=== PATIENT | female | born 1970 | race Caucasian/White ===

== ENCOUNTER 2020-10-12 20:00 | Emergency (ER) | payer BC ==
[2020-10-12] MEDS ORDERED: Sodium Chloride 0.9% 10 ML Syringe FLUSH PRN (20:25)
[2020-10-12] MEDS ORDERED: Sodium Chloride 0.9% 2.5 ML Syringe FLUSH PRN (20:25)
--- NOTE | 2020-10-12 20:32 | EDM.PDOC ---
ED HPI GENERAL MEDICAL PROBLEM - General Chief Complaint: General Stated Complaint: SHORT OF BREATHE/LEFT ARM PAIN Time Seen by Provider: 10/12/20 20:08 - History of Present Illness INITIAL COMMENTS - FREE TEXT/NARRATIVE: 50-year-old female with a history of hypertension and hyperlipidemia no prior cardiac history no pulmonary history who is presenting with left lateral chest and left shoulder discomfort. She was in her normal state of health until she woke up this morning with very minimal pain. It increases with deep breaths and has gradually worsened throughout the day she tried to take some Tylenol at work but it continues to worsen and so she presents for assessment. She denies feeling dyspneic the pain does not worsen with exertion there is no nausea or vomiting no change with p.o. intake and no abdominal pain. Pain currently moderate. shoulder/abd Pain Score (Numeric/FACES): 8 - Related Data Allergies Allergy/AdvReac Type Severity Reaction Status Date / Time No Known Allergies Allergy Verified 10/12/20 20:16 Home Meds: Home Meds Amoxicillin/Clavulanate K [Augmentin 875-125 MG] 1 tab PO BID 10 Days #19 tablet 10/12/20 [Rx] Pravastatin [Pravachol] 10/12/20 [History] lisinopriL [Lisinopril] 10/12/20 [History] Past Medical History Cardiovascular History: Reports: High Cholesterol, Hypertension - Infectious Disease History Infectious Disease History: Reports: Chicken Pox Social & Family History - Tobacco Use Tobacco Use Status *Q: Current Every Day Tobacco User Years of Tobacco use: 10 Packs/Tins Daily: 0.5 - Recreational Drug Use Recreational Drug Use: No ED ROS GENERAL - Review of Systems Review Of Systems: See Below Free Text/Narrative/Comment: General: No fever. Skin: No rash. Eyes: No vision problems. ENT: No sore throat. Neck: No neck stiffness. Respiratory: No shortness of breath. Cardiac: Per HPI Gastrointestinal: No nausea, vomiting or abdominal pain. Urinary: No dysuria. Musculoskeletal: Per HPI Neurologic: No headache. ED EXAM, GENERAL - Physical Exam Exam: See Below Free Text/Narrative:: General Appearance: No acute distress, appears comfortable Skin: No rash HEENT: Normocephalic/atraumatic, sclera anicteric, mucous membranes moist Neck: Normal range of motion Chest and Lungs: Bilateral breath sounds, clear to auscultation Chest wall: Tenderness in the anterior and midaxillary lines on the left side over the inferior ribs no deformity no crepitus Cardiovascular: Regular rate and rhythm, no murmur Abdomen: Soft, non-tender Back: Normal Musculoskeletal: No edema or tenderness Neurologic: Awake, alert, no obvious deficits, moving all extremities Psychiatric: Appropriate, cooperative #1 Interpretation EKG Date: 10/12/20 Time: 20:32 EKG Interpretation Comments: Sinus tachycardia rate of 100 normal axis QTC 438 no acute ischemia Course - Vital Signs Last Recorded V/S: Last Vital Signs Temp 99 F 10/12/20 20:13 Pulse 80 10/12/20 22:31 Resp 16 10/12/20 22:31 BP 136/67 10/12/20 22:31 Pulse Ox 98 10/12/20 22:31 - Orders/Labs/Meds Orders: Active Orders 24 hr Category Date Time Status EKG 12 Lead [EKG Documentation Completion] [RC] STAT Care 10/12/20 20:09 Active B-TYPE NATRIURETIC PEPTIDE,BNP [CHEM] Stat Lab 10/12/20 20:43 Received Sodium Chloride 0.9% [Saline Flush] Med 10/12/20 20:25 Active 10 ml FLUSH ASDIRECTED PRN Sodium Chloride 0.9% [Saline Flush] Med 10/12/20 20:25 Active 2.5 ml FLUSH ASDIRECTED PRN Saline Lock Insert [OM.PC] Stat Oth 10/12/20 20:25 Ordered Medication Orders Sodium Chloride (Saline Flush) 10 ml FLUSH ASDIRECTED PRN PRN Reason: Keep Vein Open Sodium Chloride (Saline Flush) 2.5 ml FLUSH ASDIRECTED PRN PRN Reason: Keep Vein Open Labs: Laboratory Tests 10/12/20 10/12/20 10/12/20 Range/Units 20:43 20:43 20:43 WBC 12.34 H (4.0-11.0) K/uL RBC 4.79 (4.30-5.90) M/uL Hgb 15.0 (12.0-16.0) g/dL Hct 45.6 (36.0-46.0) % MCV 95.2 (80.0-98.0) fL MCH 31.3 (27.0-32.0) pg MCHC 32.9 (31.0-37.0) g/dL RDW Std Deviation 42.8 (28.0-62.0) fl RDW Coeff of Judy 12 (11.0-15.0) % Plt Count 245 (150-400) K/uL MPV 10.10 (7.40-12.00) fL Neut % (Auto) 75.2 (48.0-80.0) % Lymph % (Auto) 11.8 L (16.0-40.0) % Cloud % (Auto) 11.7 (0.0-15.0) % Eos % (Auto) 1.1 (0.0-7.0) % Baso % (Auto) 0.2 (0.0-1.5) % Neut # (Auto) 9.3 H (1.4-5.7) K/uL Lymph # (Auto) 1.5 (0.6-2.4) K/uL Cloud # (Auto) 1.4 H (0.0-0.8) K/uL Eos # (Auto) 0.1 (0.0-0.7) K/uL Baso # (Auto) 0.0 (0.0-0.1) K/uL Nucleated RBC % 0.0 /100WBC Nucleated RBCs # 0 K/uL D-Dimer, Quantitative 0.61 H (0.0-0.50) mg/L FEU Sodium 141 (136-145) mmol/L Potassium 4.0 (3.5-5.1) mmol/L Chloride 102 (98-107) mmol/L Carbon Dioxide 29.1 (21.0-32.0) mmol/L BUN 13 (7.0-18.0) mg/dL Creatinine 0.8 (0.6-1.0) mg/dL Est Cr Clr Drug Dosing 74.02 mL/min Estimated GFR (MDRD) > 60.0 ml/min Glucose 112 H (74-106) mg/dL Calcium 9.5 (8.5-10.1) mg/dL Total Bilirubin 0.5 (0.2-1.0) mg/dL AST 19 (15-37) IU/L ALT 24 (14-63) IU/L Alkaline Phosphatase 77 (46-116) U/L Troponin I < 0.050 (0.000-0.056) ng/mL Total Protein 8.3 H (6.4-8.2) g/dL Albumin 3.9 (3.4-5.0) g/dL Globulin 4.4 H (2.6-4.0) g/dL Albumin/Globulin Ratio 0.9 (0.9-1.6) Meds: Medications Generic Name Dose Route Start Last Admin Trade Name Freq PRN Reason Stop Dose Admin Sodium Chloride 10 ml 10/12/20 20:25 Saline Flush FLUSH ASDIRECTED PRN Keep Vein Open Sodium Chloride 2.5 ml 10/12/20 20:25 Saline Flush FLUSH ASDIRECTED PRN Keep Vein Open Discontinued Medications Generic Name Dose Route Start Last Admin Trade Name Freq PRN Reason Stop Dose Admin Iopamidol 75 ml 10/12/20 21:51 10/12/20 21:51 Isovue Multipack-370 (76%) IVPUSH 10/12/20 21:52 75 ml ONETIME STA Administration Departure - Departure Time of Disposition: 23:09 Disposition: Home, Self-Care 01 Condition: Good Clinical Impression: Diverticulitis - Discharge Information *PRESCRIPTION DRUG MONITORING PROGRAM REVIEWED*: Not Applicable *COPY OF PRESCRIPTION DRUG MONITORING REPORT IN PATIENT CORINNA: Not Applicable Prescriptions: Amoxicillin/Clavulanate K [Augmentin 875-125 MG] 1 tab PO BID 10 Days #19 tablet Instructions: Diverticulitis Referrals: Andres Henderson MD [Primary Care Provider] - Forms: ED Department Discharge Additional Instructions: Please be sure to keep the appointment with your primary care doctor scheduled for later this week. The following information is given to patients seen in the emergency department who are being discharged to home. This information is to outline your options for follow-up care. We provide all patients seen in our emergency department with a follow-up referral. The need for follow-up, as well as the timing and circumstances, are variable depending upon the specifics of your emergency department visit. If you don't have a primary care physician on staff, we will provide you with a referral. We always advise you to contact your personal physician following an emergency department visit to inform them of the circumstance of the visit and for follow-up with them and/or the need for any referrals to a consulting specialist. The emergency department will also refer you to a specialist when appropriate. This referral assures that you have the opportunity for follow-up care with a specialist. All of these measure are taken in an effort to provide you with optimal care, which includes your follow-up. Under all circumstances we always encourage you to contact your private physician who remains a resource for coordinating your care. When calling for follow-up care, please make the office aware that this follow-up is from your recent emergency room visit. If for any reason you are refused follow-up, please contact the [facility] Emergency Department at and asked to speak to the emergency department charge nurse. Sepsis Event Note (ED) - Evaluation Sepsis Screening Result: No Definite Risk - Focused Exam Vital Signs: Vital Signs Temp Pulse Resp BP Pulse Ox 10/12/20 22:31 80 16 136/67 98 10/12/20 21:25 91 16 189/104 H 97 10/12/20 20:13 99 F 111 H 16 154/100 H 97 - My Orders Last 24 Hours: My Active Orders 10/12/20 20:09 EKG 12 Lead [EKG Documentation Completion] [RC] STAT 10/12/20 20:25 Sodium Chloride 0.9% [Saline Flush] 10 ml FLUSH ASDIRECTED PRN Sodium Chloride 0.9% [Saline Flush] 2.5 ml FLUSH ASDIRECTED PRN Saline Lock Insert [OM.PC] Stat 10/12/20 20:43 B-TYPE NATRIURETIC PEPTIDE,BNP [CHEM] Stat - Assessment/Plan Last 24 Hours: My Active Orders 10/12/20 20:09 EKG 12 Lead [EKG Documentation Completion] [RC] STAT 10/12/20 20:25 Sodium Chloride 0.9% [Saline Flush] 10 ml FLUSH ASDIRECTED PRN Sodium Chloride 0.9% [Saline Flush] 2.5 ml FLUSH ASDIRECTED PRN Saline Lock Insert [OM.PC] Stat 10/12/20 20:43 B-TYPE NATRIURETIC PEPTIDE,BNP [CHEM] Stat Assessment:: 50-year-old female with minimal past history is presenting with pleuritic left chest pain likely referred to the left shoulder there is no history of shoulder trauma no pain with shoulder range of motion. Lungs are clear low suspicion for pneumothorax but x-ray pending no preceding infectious symptoms that would suggest Covid or pneumonia. Again x-ray pending but would not test for Covid unless chest x-ray was concerning for this. PE considered patient has some very minimal tachycardia with a heart rate of 100 and given this D-dimer has been added. Patient without signs or symptoms of DVT. ACS considered I think is very unlikely given the description of the pain her EKG is without acute ischemia single troponin pending single troponin should be sufficient given duration of symptoms. No findings of pericarditis or myocarditis. Patient declines pain medication at this time. If evaluation is reassuring we will trial conservative management with NSAIDs and follow-up. 2300: Labs with mild leukocytosis mild D-dimer elevation CT pulmonary angio is normal in the chest but does demonstrate uncomplicated diverticulitis at the splenic flexure but I think likely explains the patient's symptoms. Patient has no known allergies and no recent antibiotic exposure. Given this we will start with Augmentin strict return precautions discussed and understood the patient will follow-up with her primary care doctor at an already scheduled appointment in 3 days.
--- NOTE | 2020-10-12 20:53 | CR ---
Indication: Left chest and shoulder pain Comparison: None available. Technique: PA and Lateral views chest Findings: There is mild chronic interstitial change. There is no focal consolidation, effusion, or pneumothorax. The cardiomediastinal silhouette is within normal limits. The bony thorax is grossly intact. Impression: Mild chronic interstitial changes without evidence of dense consolidation. Dictated by Santiago Rojas MD @ Oct 12 2020 8:49PM Signed by Dr. Santiago Rojas @ Oct 12 2020 8:51PM
[2020-10-12 21:17] LABS: BLOOD UREA NITROGEN,BUN 13 mg/dL (7.0-18.0); CARBON DIOXIDE,CO2 29.1 mmol/L (21.0-32.0); CHLORIDE,CL 102 mmol/L (98-107); GLUCOSE RANDOM 112 mg/dL (74-106); SODIUM,NA 141 mmol/L (136-145)
[2020-10-12] MEDS ORDERED: Iopamidol 755 MG/ML 500 ML Multipack Bottle IVPUSH STA ×2 (21:50→21:51)
--- NOTE | 2020-10-12 22:39 | CT ---
INDICATION: Chest pain and positive D-dimer TECHNIQUE: CT chest PE was acquired with 75 cc Isovue 370 intravenous contrast. COMPARISON: None. FINDINGS: Heart and vasculature: Contrast opacification of the pulmonary arterial tree is adequate. No sign of pulmonary embolism. No pericardial effusion. Thoracic aorta is normal in caliber. Lungs and pleural: No suspicious nodules or infiltrates. No pleural effusions, pleural thickening, or pneumothorax. Lymph nodes/mediastinum: No mediastinal, hilar, or axillary adenopathy. Chest wall: No masses. Upper abdomen: Colonic diverticulosis with some inflammatory fat stranding surrounding the colon at the level of the splenic flexure (404, 48). Mild wall thickening in this region. Bones: Unremarkable for age. IMPRESSION: 1. No evidence of pulmonary embolus or acute consolidation. 2. Colonic diverticulosis with prominent inflammation wall thickening at the level of the splenic flexure consistent with acute diverticulitis. Notably, inflammation extends to the level of the left hemidiaphragm. Considering the somewhat masslike thickening in this region, colonoscopy is suggested after treatment to ensure normalization of this area. Please note that all CT scans at this facility use dose modulation, iterative reconstruction, and/or weight-based dosing when appropriate to reduce radiation dose to as low as reasonably achievable. Dictated by Angel Knight MD @ Oct 12 2020 10:21PM Signed by Dr. Angel Knight @ Oct 12 2020 10:37PM
[2020-10-12] MEDS ORDERED: Amoxicillin/Clavulanate K 875-125 MG Tab PO ONE (23:11)
== END 2020-10-12 23:30 | disposition home or self-care (01) ==
LOC: MW.ED 20:00
DX: K57.32 Diverticulitis of large intestine without perforation or abscess without bleeding (principal); I10 Essential (primary) hypertension; F17.210 Nicotine dependence, cigarettes, uncomplicated
CPT/HCPCS: 36415; 71046; 71275; 80053; 83880; 84484; 85025; 85379; 93005; 99285; A9270; Q9967; 93010; 99284

== ENCOUNTER 2021-01-11 13:32 | Emergency (ER) | payer BC ==
--- NOTE | 2021-01-11 13:34 | EDM.PDOC ---
ED HPI GENERAL MEDICAL PROBLEM - General Stated Complaint: STOMACH ULCERS/BLOODY STOOLS Time Seen by Provider: 01/11/21 13:33 Source of Information: Reports: Patient History Limitations: Reports: No Limitations - History of Present Illness INITIAL COMMENTS - FREE TEXT/NARRATIVE: 50-year-old female past medical history stomach ulcer presents for abdominal pain and dark stool. Patient states that she was diagnosed clinically with a stomach ulcer a couple of months ago after experiencing abdominal pain radiating to her back as well as dark stool. She was given the medication although she cannot member the name and had been doing okay until 3 or 4 days ago when she began to note worsening upper abdominal pain radiating to back. Last couple days she has noted darker stool. No symptoms of generalized weakness, syncope, chest pain, shortness of breath indicative of symptomatic anemia. Slightly nauseated and feels bloated but no vomiting. She notes that she has appointment for endoscopy but soonest available was March of this year which is 3 months from now. abdominal Pain Score (Numeric/FACES): 5 - Related Data Allergies Allergy/AdvReac Type Severity Reaction Status Date / Time No Known Allergies Allergy Verified 01/11/21 14:09 Home Meds: Home Meds Pravastatin [Pravachol] 40 mg PO DAILY 10/12/20 [History] lisinopriL [Lisinopril] 20 mg PO DAILY 10/12/20 [History] Pantoprazole [ProTONIX] 40 mg PO DAILY 01/11/21 [History] Sucralfate [Carafate] 1 gm PO Q6H PRN #1 bottle 01/11/21 [Rx] Past Medical History Cardiovascular History: Reports: High Cholesterol, Hypertension - Infectious Disease History Infectious Disease History: Reports: Chicken Pox ED ROS GENERAL - Review of Systems Review Of Systems: Comprehensive ROS is negative, except as noted in HPI. ED EXAM, GENERAL - Physical Exam Exam: See Below Exam Limited By: No Limitations General Appearance: Alert, WD/WN, No Apparent Distress Throat/Mouth: Normal Voice, No Airway Compromise Head: Atraumatic, Normocephalic Respiratory/Chest: No Respiratory Distress, Lungs Clear, Normal Breath Sounds, No Accessory Muscle Use Cardiovascular: Normal Peripheral Pulses, Regular Rate, Rhythm GI/Abdominal: Normal Bowel Sounds, Soft, Non-Tender Extremities: Normal Inspection Neurological: Alert Psychiatric: Normal Affect, Normal Mood Skin Exam: Warm, Dry, Intact, Normal Color Course - Vital Signs Last Recorded V/S: Last Vital Signs Temp 98 F 01/11/21 13:39 Pulse 87 01/11/21 13:39 Resp 18 01/11/21 13:39 BP 154/80 H 01/11/21 13:39 Pulse Ox 95 01/11/21 13:39 - Orders/Labs/Meds Orders: Active Orders 24 hr Category Date Time Status Sodium Chloride 0.9% [Saline Flush] Med 01/11/21 13:45 Active 10 ml FLUSH ASDIRECTED PRN Sodium Chloride 0.9% [Saline Flush] Med 01/11/21 13:45 Active 2.5 ml FLUSH ASDIRECTED PRN Saline Lock Insert [OM.PC] Stat Oth 01/11/21 13:45 Ordered Medication Orders Sodium Chloride (Saline Flush) 2.5 ml FLUSH ASDIRECTED PRN PRN Reason: Keep Vein Open Last Admin: 01/11/21 14:05 Dose: 2.5 ml Documented by: ROSAURA Sodium Chloride (Saline Flush) 10 ml FLUSH ASDIRECTED PRN PRN Reason: Keep Vein Open Last Admin: 01/11/21 14:05 Dose: 10 ml Documented by: ROSAURA Labs: Laboratory Tests 01/11/21 01/11/21 01/11/21 Range/Units 13:47 13:47 13:47 WBC 11.33 H (4.0-11.0) K/uL RBC 4.78 (4.30-5.90) M/uL Hgb 14.9 (12.0-16.0) g/dL Hct 44.7 (36.0-46.0) % MCV 93.5 (80.0-98.0) fL MCH 31.2 (27.0-32.0) pg MCHC 33.3 (31.0-37.0) g/dL RDW Std Deviation 43.9 (28.0-62.0) fl RDW Coeff of Judy 13 (11.0-15.0) % Plt Count 272 (150-400) K/uL MPV 10.20 (7.40-12.00) fL Neut % (Auto) 70.1 (48.0-80.0) % Lymph % (Auto) 19.6 (16.0-40.0) % Hitchcock % (Auto) 9.1 (0.0-15.0) % Eos % (Auto) 0.9 (0.0-7.0) % Baso % (Auto) 0.3 (0.0-1.5) % Neut # (Auto) 8.0 H (1.4-5.7) K/uL Lymph # (Auto) 2.2 (0.6-2.4) K/uL Hitchcock # (Auto) 1.0 H (0.0-0.8) K/uL Eos # (Auto) 0.1 (0.0-0.7) K/uL Baso # (Auto) 0.0 (0.0-0.1) K/uL Nucleated RBC % 0.0 /100WBC Nucleated RBCs # 0 K/uL INR 1.01 APTT 25.3 (18.6-31.3) SEC Lactate 0.5 (0.20-2.00) mmol/L Sodium (136-145) mmol/L Potassium (3.5-5.1) mmol/L Chloride (98-107) mmol/L Carbon Dioxide (21.0-32.0) mmol/L BUN (7.0-18.0) mg/dL Creatinine (0.6-1.0) mg/dL Est Cr Clr Drug Dosing mL/min Estimated GFR (MDRD) ml/min Glucose (74-106) mg/dL Calcium (8.5-10.1) mg/dL Magnesium (1.8-2.4) mg/dL Total Bilirubin (0.2-1.0) mg/dL AST (15-37) IU/L ALT (14-63) IU/L Alkaline Phosphatase (46-116) U/L Total Protein (6.4-8.2) g/dL Albumin (3.4-5.0) g/dL Globulin (2.6-4.0) g/dL Albumin/Globulin Ratio (0.9-1.6) Lipase (73-393) U/L 01/11/21 Range/Units 13:47 WBC (4.0-11.0) K/uL RBC (4.30-5.90) M/uL Hgb (12.0-16.0) g/dL Hct (36.0-46.0) % MCV (80.0-98.0) fL MCH (27.0-32.0) pg MCHC (31.0-37.0) g/dL RDW Std Deviation (28.0-62.0) fl RDW Coeff of Judy (11.0-15.0) % Plt Count (150-400) K/uL MPV (7.40-12.00) fL Neut % (Auto) (48.0-80.0) % Lymph % (Auto) (16.0-40.0) % Hitchcock % (Auto) (0.0-15.0) % Eos % (Auto) (0.0-7.0) % Baso % (Auto) (0.0-1.5) % Neut # (Auto) (1.4-5.7) K/uL Lymph # (Auto) (0.6-2.4) K/uL Hitchcock # (Auto) (0.0-0.8) K/uL Eos # (Auto) (0.0-0.7) K/uL Baso # (Auto) (0.0-0.1) K/uL Nucleated RBC % /100WBC Nucleated RBCs # K/uL INR APTT (18.6-31.3) SEC Lactate (0.20-2.00) mmol/L Sodium 141 (136-145) mmol/L Potassium 3.7 (3.5-5.1) mmol/L Chloride 103 (98-107) mmol/L Carbon Dioxide 25.9 (21.0-32.0) mmol/L BUN 17 (7.0-18.0) mg/dL Creatinine 0.6 (0.6-1.0) mg/dL Est Cr Clr Drug Dosing 102.68 mL/min Estimated GFR (MDRD) > 60.0 ml/min Glucose 104 (74-106) mg/dL Calcium 9.0 (8.5-10.1) mg/dL Magnesium 2.0 (1.8-2.4) mg/dL Total Bilirubin 0.3 (0.2-1.0) mg/dL AST 15 (15-37) IU/L ALT 23 (14-63) IU/L Alkaline Phosphatase 73 (46-116) U/L Total Protein 7.7 (6.4-8.2) g/dL Albumin 3.7 (3.4-5.0) g/dL Globulin 4.0 (2.6-4.0) g/dL Albumin/Globulin Ratio 0.9 (0.9-1.6) Lipase 85 (73-393) U/L Meds: Medications Generic Name Dose Route Start Last Admin Trade Name Freq PRN Reason Stop Dose Admin Sodium Chloride 2.5 ml 01/11/21 13:45 01/11/21 14:05 Saline Flush FLUSH 2.5 ml ASDIRECTED PRN Administration Keep Vein Open Sodium Chloride 10 ml 01/11/21 13:45 01/11/21 14:05 Saline Flush FLUSH 10 ml ASDIRECTED PRN Administration Keep Vein Open Discontinued Medications Generic Name Dose Route Start Last Admin Trade Name Freq PRN Reason Stop Dose Admin Al Hydroxide/Mg Hydroxide 15 0 ml 01/11/21 13:46 01/11/21 14:03 ml/ Lidocaine HCl 5 ml PO 01/11/21 13:47 1 each ONETIME ONE Administration Pantoprazole Sodium 40 mg/ 20 mls @ 420 mls/hr 01/11/21 13:48 01/11/21 14:05 Sodium Chloride IVPUSH 01/11/21 13:50 420 mls/hr ONETIME ONE Administration Sucralfate 1 gm 01/11/21 13:47 01/11/21 14:08 Carafate PO 01/11/21 13:48 1 gm ONETIME ONE Administration - Re-Assessments/Exams Free Text/Narrative Re-Assessment/Exam: 01/11/21 13:54 We will get labs to ensure no anemia, RAPHAEL. Will treat symptomatically with Carafate and GI cocktail as well as Protonix IV. We will follow up results and disposition accordingly. 01/11/21 14:54 Patient's labs are grossly unremarkable. No evidence of anemia or kidney dysfunction. She is feeling much better after Carafate and GI cocktail. Will discharge with prescription for Carafate. Patient placed on follow-up list as she will likely require endoscopy before her scheduled appointment in March. She was also given contact information for local general surgery who performed endoscopy. Return precautions including difficulty breathing, chest pain, syncope, esmer blood per rectum were discussed. Departure - Departure Time of Disposition: 14:54 Disposition: Home, Self-Care 01 Condition: Good Clinical Impression: Abdominal pain Qualifiers: Abdominal location: generalized Qualified Code(s): R10.84 - Generalized abdominal pain - Discharge Information Prescriptions: Sucralfate [Carafate] 1 gm PO Q6H PRN #1 bottle PRN Reason: Abdominal Pain Instructions: Gastritis, Adult, Upper Endoscopy, Adult, Peptic Ulcer, Peptic Ulcer Eating Plan Referrals: Andres Henderson MD [Primary Care Provider] - Additional Instructions: Your labs are grossly unremarkable. You have been placed on her patient follow- up list so someone should be contacting you to help you schedule an appointment for endoscopy. If nobody contacts you, information is provided below for our general surgery department. They do perform endoscopies. I have also provided information below for gastroenterology in [place]. [facility] General Surgery (local, does endoscopies) Professional Building [address] [place] [address], [address] [place] [address] [facility] Gastroenterology (GI specialist, also does endoscopies and is more specialized for GI care) [address] [place] [id number] The following information is given to patients seen in the emergency department who are being discharged to home. This information is to outline your options for follow-up care. We provide all patients seen in our emergency department with a follow-up referral. The need for follow-up, as well as the timing and circumstances, are variable depending upon the specifics of your emergency department visit. If you don't have a primary care physician on staff, we will provide you with a referral. We always advise you to contact your personal physician following an emergency department visit to inform them of the circumstance of the visit and for follow-up with them and/or the need for any referrals to a consulting specialist. The emergency department will also refer you to a specialist when appropriate. This referral assures that you have the opportunity for follow-up care with a specialist. All of these measure are taken in an effort to provide you with optimal care, which includes your follow-up. Under all circumstances we always encourage you to contact your private physician who remains a resource for coordinating your care. When calling for follow-up care, please make the office aware that this follow-up is from your recent emergency room visit. If for any reason you are refused follow-up, please contact the [facility] Emergency Department at and asked to speak to the emergency department charge nurse. Please follow up with your primary care physician. If you do not have a primary care physician, see below: [facility] [id number], [place] [id number] [facility] [address] [place] [address] [facility] [address], [place] [address] Sepsis Event Note (ED) - Focused Exam Vital Signs: Vital Signs Temp Pulse Resp BP Pulse Ox 01/11/21 13:39 98 F 87 18 154/80 H 95 - My Orders Last 24 Hours: My Active Orders 01/11/21 13:45 Sodium Chloride 0.9% [Saline Flush] 10 ml FLUSH ASDIRECTED PRN Sodium Chloride 0.9% [Saline Flush] 2.5 ml FLUSH ASDIRECTED PRN Saline Lock Insert [OM.PC] Stat - Assessment/Plan Last 24 Hours: My Active Orders 01/11/21 13:45 Sodium Chloride 0.9% [Saline Flush] 10 ml FLUSH ASDIRECTED PRN Sodium Chloride 0.9% [Saline Flush] 2.5 ml FLUSH ASDIRECTED PRN Saline Lock Insert [OM.PC] Stat
[2021-01-11] MEDS ORDERED: Sodium Chloride 0.9% 2.5 ML Syringe FLUSH PRN (13:45)
[2021-01-11] MEDS ORDERED: Sodium Chloride 0.9% 10 ML Syringe FLUSH PRN (13:45)
[2021-01-11] MEDS ORDERED: Alum Hydrox/Mag Hydrox/Simeth 15 ML, Lidocaine 2% 5 ML PO ONE ×2 (13:46)
[2021-01-11] MEDS ORDERED: Sucralfate Suspension 1 GM/10 ML Cup PO ONE (13:47)
[2021-01-11] MEDS ORDERED: Pantoprazole 40 MG in Sodium Chloride 0.9% 20 ML IVPUSH ONE (13:48)
[2021-01-11 14:23] LABS: BLOOD UREA NITROGEN,BUN 17 mg/dL (7.0-18.0); CARBON DIOXIDE,CO2 25.9 mmol/L (21.0-32.0); CHLORIDE,CL 103 mmol/L (98-107); GLUCOSE RANDOM 104 mg/dL (74-106); LIPASE 85 U/L (73-393); POTASSIUM,K 3.7 mmol/L (3.5-5.1); SODIUM,NA 141 mmol/L (136-145)
== END 2021-01-11 15:09 | disposition home or self-care (01) ==
LOC: MW.ED 13:32
DX: R10.84 Generalized abdominal pain (principal); R11.0 Nausea; I10 Essential (primary) hypertension; E78.00 Pure hypercholesterolemia, unspecified; Z79.899 Other long term (current) drug therapy
CPT/HCPCS: 36415; 80053; 83605; 83690; 83735; 85025; 85610; 85730; 96374; 99284; A9270; C9113

== ENCOUNTER 2021-02-01 09:24 | Day surgery (SDC) | payer BC ==
[~2021-02-01 09:24] MED LIST: Lactated Ringers 1,000 ML IV SCH
[2021-02-01] MEDS ORDERED: fentaNYL 100 MCG/2 ML SDV ONE (09:26)
[2021-02-01] MEDS ORDERED: Midazolam 1 MG/ML 2 ML SDV ONE (09:26)
[2021-02-01] MEDS ORDERED: Propofol 200 MG/20 ML SDV ONE ×3 (09:26→11:04)
[2021-02-01] MEDS ORDERED: Lidocaine 2% 5 ML SDV ONE (09:26)
--- NOTE | 2021-02-01 10:01 | PCM.PREANE ---
Preanesthetic Assessment - Anesthesia/Transfusion/Family Hx Anesthesia History: Prior Anesthesia Without Reaction Family History of Anesthesia Reaction: No Transfusion History: Prior Transfusion Without Reaction - Review of Systems General: No Symptoms Pulmonary: No Symptoms Cardiovascular: No Symptoms Gastrointestinal: No Symptoms Neurological: No Symptoms Other: Reports: None - Physical Assessment NPO Status Date: 01/31/21 NPO Status Time: 21:00 Height: 1.68 m Weight: 92.986 kg ASA Class: 2 Mental Status: Alert & Oriented x3 Airway Class: Mallampati = 2 Dentition: Reports: Normal Dentition Thyro-Mental Finger Breadths: 3 Mouth Opening Finger Breadths: 3 ROM/Head Extension: Full Lungs: Clear to Auscultation, Normal Respiratory Effort Cardiovascular: Regular Rate, Regular Rhythm - Allergies Allergies/Adverse Reactions: Allergies Allergy/AdvReac Type Severity Reaction Status Date / Time No Known Allergies Allergy Verified 01/26/21 14:34 - Acknowledgements Anesthesia Type Planned: MAC (The patient understands and accepts the anesthetic risks and benefits of MAC. All questions answered. She has consented. 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: Musculoskeletal History: Reports: None Neurological History: Reports: None Psychiatric History: Reports: None Endocrine/Metabolic History: Reports: Obesity/BMI 30+ (bmi 33) Hematologic History: Reports: Blood Transfusion(s) Other Hematologic History: blood transfusion for post bleed Immunologic History: Reports: None Oncologic (Cancer) History: Reports: None Dermatologic History: Reports: None - Infectious Disease History Infectious Disease History: Reports: Chicken Pox, Other (See Below) (covid negative (January 2021)) - Past Surgical History Head Surgeries/Procedures: Reports: None HEENT Surgical History: Reports: Tonsillectomy Cardiovascular Surgical History: Reports: None Respiratory Surgical History: Reports: None GI Surgical History: Reports: None Female Surgical History: Reports: Other (See Below) Other Female Surgeries/Procedures: diagnostic laparoscopy ovaries resection Endocrine Surgical History: Reports: None Neurological Surgical History: Reports: None Musculoskeletal Surgical History: Reports: None Oncologic Surgical History: Reports: None Dermatological Surgical History: Reports: None - History Comment History Comment: etoh "1-2x a year". - SUBSTANCE USE Tobacco Use Status *Q: Current Every Day Tobacco User (17 years) Tobacco Use Within Last Twelve Months: Cigarettes Recreational Drug Use History: No - HOME MEDS Home Medications: Home Meds Pravastatin [Pravachol] 40 mg PO DAILY 10/12/20 [History] lisinopriL [Lisinopril] 20 mg PO DAILY 10/12/20 [History] Pantoprazole [ProTONIX] 40 mg PO DAILY 01/11/21 [History] Sucralfate [Carafate] 1 gm PO Q6H PRN #1 bottle 01/11/21 [Rx]
--- NOTE | 2021-02-01 11:37 | PCM.OPNOTE ---
- General Post-Op/Procedure Note Date of Surgery/Procedure: 02/01/21 Operative Procedure(s): egd w bx. colonoscopy w random bx Findings: see [id number] Pre Op Diagnosis: recurrent diverticulitis bleeding BRBPR Post-Op Diagnosis: Same Anesthesia Technique: Moderate Sedation Primary Surgeon: Juan Augustine Pathology: egd w bx colonoscopy w random bx Complications: None Condition: Good
--- NOTE | 2021-02-01 11:44 | PCM.POSTAN ---
POST ANESTHESIA ASSESSMENT - MENTAL STATUS Mental Status: Alert, Oriented - VITAL SIGNS Vital Signs: Last Vital Signs Temp 36.9 C 02/01/21 10:16 Pulse 67 02/01/21 11:38 Resp 13 02/01/21 11:38 BP 140/78 02/01/21 11:38 Pulse Ox 95 02/01/21 11:38 - RESPIRATORY Respiratory Status: Respiratory Rate WNL, Airway Patent, O2 Saturation Stable - CARDIOVASCULAR CV Status: Pulse Rate WNL, Blood Pressure Stable - GASTROINTESTINAL GI Status: No Symptoms - POST OP HYDRATION Hydration Status: Adequate & Stable - OBSERVATIONS Free Text/Narrative:: The patient tolerated the procedure well. There were no apparent anesthetic complications at this time. Discharge per criteria.
--- NOTE | 2021-02-01 12:02 | PCM48HPAN ---
Post Anesthesia Note - EVALUATION WITHIN 48HRS OF ANESTHETIC Vital Signs in Normal Range: Yes Patient Participated in Evaluation: Yes Respiratory Function Stable: Yes Airway Patent: Yes Cardiovascular Function Stable: Yes Hydration Status Stable: Yes Pain Control Satisfactory: Yes Nausea and Vomiting Control Satisfactory: Yes Mental Status Recovered: Yes Vital Signs: Last Vital Signs Temp 36.9 C 02/01/21 10:16 Pulse 67 02/01/21 11:38 Resp 13 02/01/21 11:38 BP 140/78 02/01/21 11:38 Pulse Ox 95 02/01/21 11:38 - COMMENTS/OBSERVATIONS Free Text/Narrative:: The patient has no complaints at this time. Discharge per criteria.
--- NOTE | 2021-02-01 12:55 | OR ---
SURGEON: Juan Augustine MD DATE OF PROCEDURE: 02/01/2021 PREOPERATIVE DIAGNOSES: Recurrent diverticulitis and with bright red blood per rectum. PROCEDURE PERFORMED: Esophagogastroduodenoscopy with biopsy and colonoscopy with random biopsy. PRIMARY SURGEON: Juan Augustine MD COMPLICATIONS: None. DESCRIPTION OF PROCEDURE: EGD: The patient was taken to the endoscopy room, and with the MOLDER PUNCH, Diprivan was administered. A well-lubricated EGD scope was gently inserted through the oropharynx, down the esophagus, passing through the gastroesophageal junction, into the stomach. The mucosa was examined upon the passage. Any etiology will be noted. Once in the stomach, we continued to advance to the distal antrum, passed through the pylorus into the second portion of the duodenum. Again, the mucosa was examined for any abnormality and etiology. The scope was then retrieved back to the stomach and then retroflexed to look at the fundus of the stomach. If a biopsy was indicated, we will biopsy the antrum, body, and gastroesophageal junction. The air will be sucked out while the scope is retrieved to reduce the patient's discomfort. The patient tolerated the procedure well. There were no intraoperative complications. Dr. Augustine was present through the whole procedure. Prior to surgery, a time-out had been called, the patient identified, procedure identified and antibiotic administered. The patient was taken to the endoscopy room. A time out was called, patient identified, and procedure identified. Diprivan was then administrated. Patient went from awake to sleep, hearing doctor talking or door closing is normal. Perineum inspection and digital examination were then performed. A well- lubricated colonoscope was gently inserted through the rectum, advanced past the rectosigmoid junction, the descending colon, splenic flexure, transverse colon, hepatic flexure, ascending colon, arrived to the cecum. Cecum was identified as dictated in the finding. Then the scope was carefully withdrawn while attention was paid to the mucosal surface for any abnormality. Air will be sucked out during the scope withdrawal. At the rectum, retroflexed to examine any rectal diseases, fistula or hemorrhoids. During mucosal examination, abnormality or polyp was noted; picture taken and biopsy performed. Patient tolerated procedure well. There were no intraoperative complications, and Dr. Augustine was present throughout the whole procedure. FINDINGS: EGD findings: 1. The patient is easily sedated with MOLDER PUNCH and Diprivan, the patient is soundly snoring. 2. Oropharynx and proximal esophagus are free of disease and distal esophagus at GE junction at 40 shows salmon-colored change, suggests acid reflux and also skip lesion and flame-like structure consistent with possible Eller esophagitis. One of them is pretty high up, like a long segment, almost like at distance 35 cm. No esmer ulcer, but inflammation is present. Stomach rugae are normal in appearance and there is no bile, no food particle, no blood. Antrum looks fine. Duodenum looks fine. Retroflexed look at the fundus of the stomach, there is no hiatal hernia. Biopsy done at antrum, body, GE junction at 40. Biopsy done three times and tried to capture the flame-like structure and sucked out the gas while scope pulling out. Colonoscopy findings: 1. The patient is easily sedated with MOLDER PUNCH and Diprivan, the patient is soundly snoring. 2. The patient's bowel prep is left to be desirable, but I do not think she can help it. A lot of stool ball, I mean a lot. Mixed examination, compromised and difficult, but when you suck out the food by irrigation, the stool ball clog up the scope, but if you do not suck it out, you can see. So it is a compromised study. 3. The patient's colon is very redundant at the sigmoid and going to the cecum and the hepatic flexure is challenging requiring abdominal compression and finally cecum indicated by ileocecal fold, appendiceal orifice, and one-to- one indentation. ScopeGuide is pointing south. Mucosa examined upon scope pulling out with a lot of irrigation and again is compromised because of the stool ball. The patient has very extensive diverticulosis, very extensive. Pseudo lumen is bigger than the true lumen of the colon and quite a lot. I would say almost about 45% in the left and about 30% in the middle and 25 in the right, totalling up to 100. So the patient has pancolonic diverticulosis. No signs or symptoms of diverticulitis. No bleeding. No inflammation. No polyp. Again, it is a very compromised the study. Random biopsy done for abdominal pain, and the patient has some mild external hemorrhoids, mild internal hemorrhoids. No polyp, no mass, no growth, no inflammation, no stricture, no AV malformation. Stool is completely yellow. No black stool. No ulcer. No bleeding. The patient would benefit from repeat colonoscopy and probably an EGD, in 10 years for the colonoscopy, but with the patient's diverticulosis, I will not be surprised, we probably will have clinical indication for more recent colonoscopy. EGD, probably we will need to repeat to assess the esophagitis. We will start the patient on omeprazole 40 mg p.o. daily, give one month and with three refills. RYAN MARISCAL /[id number]
== END 2021-02-01 12:05 | disposition home or self-care (01) ==
LOC: MW.SDS 09:24
PROVIDERS: ATTEND Surgery
DX: K57.30 Diverticulosis of large intestine without perforation or abscess without bleeding (principal); K29.50 Unspecified chronic gastritis without bleeding; K64.4 Residual hemorrhoidal skin tags; K64.8 Other hemorrhoids; I10 Essential (primary) hypertension; E78.00 Pure hypercholesterolemia, unspecified; F17.210 Nicotine dependence, cigarettes, uncomplicated; E66.9 Obesity, unspecified; Z68.33 Body mass index [BMI] 33.0-33.9, adult; Z98.890 Other specified postprocedural states
CPT/HCPCS: 43239; 45380; J2250; J2704; J3010; J7120; 00813; 88305; 88312

== ENCOUNTER 2021-09-01 06:42 | Day surgery (SDC) | payer BC ==
[2021-09-01] MEDS ORDERED: fentaNYL 100 MCG/2 ML SDV ONE (06:51)
[2021-09-01] MEDS ORDERED: Lidocaine 2% 100 MG/5 ML Syringe ONE (06:51)
[2021-09-01] MEDS ORDERED: Ketamine 500 mg/10 ML MDV ONE (06:51)
[2021-09-01] MEDS ORDERED: Ondansetron 4 MG/2 ML SDV ONE (06:51)
[2021-09-01] MEDS ORDERED: propofoL 0 ML ONE (06:51)
--- NOTE | 2021-09-01 07:20 | PCM.PREANE ---
Preanesthetic Assessment - Procedure Proposed Procedure: EGD - Anesthesia/Transfusion/Family Hx Anesthesia History: Prior Anesthesia Without Reaction Family History of Anesthesia Reaction: No Transfusion History: Prior Transfusion Without Reaction Additional History: Smoker GERD- Controlled HTN- Controlled with Lisinopril MP 4 - Review of Systems General: No Symptoms Pulmonary: No Symptoms Cardiovascular: No Symptoms Gastrointestinal: No Symptoms Neurological: No Symptoms - Physical Assessment NPO Status Date: 08/31/21 NPO Status Time: 00:00 Vital Signs: Last Vital Signs Temp 36 C L 09/01/21 06:48 Pulse 77 09/01/21 06:48 Resp 16 09/01/21 06:48 BP 162/81 H 09/01/21 06:48 Pulse Ox 96 09/01/21 06:48 Height: 1.68 m Weight: 103.873 kg ASA Class: 2 Mental Status: Alert & Oriented x3 Airway Class: Mallampati = 4 Dentition: Reports: Normal Dentition ROM/Head Extension: Full Lungs: Clear to Auscultation Cardiovascular: Regular Rate - Allergies Allergies/Adverse Reactions: Allergies Allergy/AdvReac Type Severity Reaction Status Date / Time No Known Allergies Allergy Verified 08/28/21 10:54 - Blood Blood Available: No - Anesthesia Plan Pre-Op Medication Ordered: None - Acknowledgements Anesthesia Type Planned: General Anesthesia Pt an Appropriate Candidate for the Planned Anesthesia: Yes Alternatives and Risks of Anesthesia Discussed w Pt/Guardian: Yes Pt/Guardian Understands and Agrees with Anesthesia Plan: Yes PreAnesthesia Questionnaire HEENT History: Reports: Other (See Below) Other HEENT History: wears glasses Cardiovascular History: Reports: High Cholesterol, Hypertension Respiratory History: Reports: None Gastrointestinal History: Reports: GERD, Other (See Below) Other Gastrointestinal History: diverticulitis, barrettes esophagus Genitourinary History: Reports: None 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: Musculoskeletal History: Reports: None Neurological History: Reports: None Psychiatric History: Reports: None Endocrine/Metabolic History: Reports: Obesity/BMI 30+ Hematologic History: Reports: Blood Transfusion(s) Other Hematologic History: blood transfusion for post bleed Immunologic History: Reports: None Oncologic (Cancer) History: Reports: None Dermatologic History: Reports: None - Infectious Disease History Infectious Disease History: Reports: Chicken Pox, Other (See Below) - Past Surgical History Head Surgeries/Procedures: Reports: None HEENT Surgical History: Reports: Tonsillectomy Cardiovascular Surgical History: Reports: None Respiratory Surgical History: Reports: None GI Surgical History: Reports: Colonoscopy, EGD Female Surgical History: Reports: Other (See Below) Other Female Surgeries/Procedures: diagnostic laparoscopy Endocrine Surgical History: Reports: None Neurological Surgical History: Reports: None Musculoskeletal Surgical History: Reports: None Oncologic Surgical History: Reports: None Dermatological Surgical History: Reports: None - History Comment History Comment: etoh "1-2x a year". - SUBSTANCE USE Tobacco Use Status *Q: Current Every Day Tobacco User Tobacco Use Within Last Twelve Months: Cigarettes - HOME MEDS Home Medications: Home Meds Pravastatin [Pravachol] 40 mg PO DAILY 10/12/20 [History] lisinopriL [Lisinopril] 20 mg PO DAILY 10/12/20 [History] Multivitamin 1 each PO DAILY 02/01/21 [History] Omeprazole 20 mg PO DAILY 08/29/21 [History] - CURRENT (IN HOUSE) MEDS Current Meds: Current Medications Lactated Ringer's (Ringers, Lactated) 1,000 mls @ 125 mls/hr IV ASDIRECTED [facility] Last Admin: 09/01/21 07:01 Dose: 125 mls/hr Documented by: Discontinued Medications Fentanyl (Fentanyl 100 Mcg/2 Ml Sdv) Confirm Administered Dose 100 mcg .ROUTE .S TK-MED ONE Stop: 09/01/21 06:52 Propofol (Diprivan 100 Ml) Confirm Administered Dose 100 mls @ as directed .ROUTE .STK-MED ONE Stop: 09/01/21 06:52 Ketamine HCl (Ketamine 500 Mg/10 Ml Mdv) Confirm Administered Dose 500 mg .ROUTE .STK-MED ONE Stop: 09/01/21 06:52 Lidocaine HCl (Lidocaine 2% 100 Mg/5 Ml Syringe) Confirm Administered Dose 100 mg .ROUTE .STK-MED ONE Stop: 09/01/21 06:52 Ondansetron HCl (Ondansetron 4 Mg/2 Ml Sdv) Confirm Administered Dose 4 mg .ROUTE .STK-MED ONE Stop: 09/01/21 06:52
[2021-09-01] MEDS ORDERED: Propofol 200 MG/20 ML SDV ONE (07:33)
[2021-09-01] MEDS ORDERED: Esmolol 100 MG/10 ML SDV ONE (08:01)
--- NOTE | 2021-09-01 08:07 | PCM.OPNOTE ---
- General Post-Op/Procedure Note Date of Surgery/Procedure: 09/01/21 Findings: see [id number] Pre Op Diagnosis: GERD Post-Op Diagnosis: Same Anesthesia Technique: Moderate Sedation Primary Surgeon: Juan Augustine Pathology: egd bx 3 cm above zline Complications: None Condition: Good
--- NOTE | 2021-09-01 08:08 | PCM.POSTAN ---
POST ANESTHESIA ASSESSMENT - MENTAL STATUS Mental Status: Alert, Oriented - VITAL SIGNS Vital Signs: Last Vital Signs Temp 96.8 F L 09/01/21 06:48 Pulse 77 09/01/21 06:48 Resp 16 09/01/21 06:48 BP 162/81 H 09/01/21 06:48 Pulse Ox 96 09/01/21 06:48 - RESPIRATORY Respiratory Status: Respiratory Rate WNL, Airway Patent, O2 Saturation Stable - CARDIOVASCULAR CV Status: Pulse Rate WNL, Blood Pressure Stable - GASTROINTESTINAL GI Status: No Symptoms - PAIN Pain Score: 0 - POST OP HYDRATION Hydration Status: Adequate & Stable
--- NOTE | 2021-09-01 08:20 | PCM48HPAN ---
Post Anesthesia Note - EVALUATION WITHIN 48HRS OF ANESTHETIC Vital Signs in Normal Range: Yes Patient Participated in Evaluation: Yes Respiratory Function Stable: Yes Airway Patent: Yes Cardiovascular Function Stable: Yes Hydration Status Stable: Yes Pain Control Satisfactory: Yes Nausea and Vomiting Control Satisfactory: Yes Mental Status Recovered: Yes Vital Signs: Last Vital Signs Temp 96.8 F L 09/01/21 06:48 Pulse 75 09/01/21 08:15 Resp 15 09/01/21 08:15 BP 124/73 09/01/21 08:15 Pulse Ox 92 L 09/01/21 08:15 - COMMENTS/OBSERVATIONS Free Text/Narrative:: Pt doing well post-op. VSS. No apparent anesthetic complications. Dr. Gurpreet Dinh
--- NOTE | 2021-09-01 09:21 | OR ---
SURGEON: Juan Augustine MD DATE OF PROCEDURE: 09/01/2021 PREOPERATIVE DIAGNOSIS: Acid reflux. POSTOPERATIVE DIAGNOSIS: Acid reflux. PROCEDURE PERFORMED: Esophagogastroduodenoscopy with biopsy. PROCEDURE IN DETAIL: EGD: The patient was taken to the endoscopy room, and with the VACUUM BOTTLE ASSEMBLER, Diprivan was administered. A well-lubricated EGD scope was gently inserted through the oropharynx, down the esophagus, passing through the gastroesophageal junction, into the stomach. The mucosa was examined upon the passage. Any etiology will be noted. Once in the stomach, we continued to advance to the distal antrum, passed through the pylorus into the second portion of the duodenum. Again, the mucosa was examined for any abnormality and etiology. The scope was then retrieved back to the stomach and then retroflexed to look at the fundus of the stomach. If a biopsy was indicated, we will biopsy the antrum, body, and gastroesophageal junction. The air will be sucked out while the scope is retrieved to reduce the patient's discomfort. The patient tolerated the procedure well. There were no intraoperative complications. Dr. Augustine was present through the whole procedure. Prior to surgery, a time-out had been called, the patient identified, procedure identified and antibiotic administered. FINDINGS: 1. The patient is sedated but with some in and out with nap and finally good deep sleep with VACUUM BOTTLE ASSEMBLER and Diprivan. The patient is soundly snoring. 2. Oropharynx and proximal esophagus are free of disease and stricture. Distal esophagus at GE junction at 40 shows salmon-colored change, suggests acid reflux. There is no skip lesion at this time so is an improvement. There is some inflammation, a little bit high up like 2 cm to 3 cm from the Z-line. Stomach rugae is normal in appearance and there is no bile, food particle and no blood. Antrum looks fine. Duodenum looks fine. Retroflexed look at the fundus of stomach, there is no hiatal hernia. Biopsies done at antrum, body, and GE junction. At this time, we biopsied pretty up high like 3 cm from the Z-line, and biopsy done and sucked out of gas while scope pulling out. The patient tolerated the procedure well, and Dr. Augustine was present through the whole procedure. RYAN / DAVEY /[id number]
== END 2021-09-01 08:34 | disposition home or self-care (01) ==
LOC: MW.SDS 06:42
PROVIDERS: ATTEND Surgery
DX: K21.00 Gastro-esophageal reflux disease with esophagitis, without bleeding (principal); I10 Essential (primary) hypertension; E78.00 Pure hypercholesterolemia, unspecified; E66.9 Obesity, unspecified; Z79.899 Other long term (current) drug therapy; Z98.890 Other specified postprocedural states
CPT/HCPCS: 43239; J2405; J2704; J3010; J3490; J7120; 00731

== ENCOUNTER 2024-03-06 06:24 | Day surgery (SDC) | payer BC ==
[~2024-03-06 06:24] MED LIST changes: +Acetaminophen 1,000 MG in Premix Bag 1 BAG IV SCH; -Lactated Ringers 1,000 ML IV SCH
[2024-03-06] MEDS: Pregabalin 75 MG Cap PO SCH (06:45)
[2024-03-06] MEDS: Lactated Ringers 1,000 ML IV SCH (06:55)
[2024-03-06] MEDS ORDERED: Bupivacaine 0.5% 30 ML SDV ONE (07:17)
[2024-03-06] MEDS ORDERED: Propofol 200 MG/20 ML SDV ONE (07:32)
[2024-03-06] MEDS ORDERED: fentaNYL 250 MCG/5 ML SDV ONE (07:33)
[2024-03-06] MEDS ORDERED: Famotidine 20 MG/2 ML SDV ONE (07:37)
[2024-03-06] MEDS ORDERED: Ropivacaine 0.5% 5 MG/ML 30 ML SDV ONE ×2 (07:37)
[2024-03-06] MEDS ORDERED: Morphine 10 MG/ML SDV ONE (07:38)
[2024-03-06] MEDS ORDERED: Ondansetron 4 MG/2 ML SDV IVPUSH PRN (07:55)
[2024-03-06] MEDS ORDERED: HYDROmorphone 1 MG/ML Syringe IVPUSH PRN (07:55)
[2024-03-06] MEDS ORDERED: fentaNYL 50 MCG/ML SDV IVPUSH PRN (07:55)
[2024-03-06] MEDS ORDERED: Morphine 2 MG/ML SYRINGE IVPUSH PRN (07:55)
[2024-03-06] MEDS ORDERED: droPERidol 5 MG/2 ML SDV IVPUSH PRN (07:55)
[2024-03-06] MEDS ORDERED: Albuterol 0.083% 2.5 MG/3 ML Neb Soln NEB PRN (07:55)
[2024-03-06] MEDS ORDERED: Metoclopramide 10 MG/2 ML SDV IVPUSH PRN (07:55)
[2024-03-06] MEDS ORDERED: Naloxone 0.4 MG/ML SDV IVPUSH PRN (07:55)
[2024-03-06] MEDS ORDERED: Ketorolac 30 MG/ML SDV ONE (08:36)
[2024-03-06] MEDS ORDERED: Ondansetron 4 MG/2 ML SDV ONE (08:36)
[2024-03-06] MEDS ORDERED: Sugammadex Sodium 200 MG/2 ML VIAL IV ONE (08:36)
[2024-03-06] MEDS ORDERED: Phenylephrine HCl In 0.9% NaCl 1 MG/10 ML Syringe ONE (08:36)
[2024-03-06] MEDS ORDERED: Dexamethasone 4 MG/ML 5 ML MDV ONE (08:36)
[2024-03-06] MEDS ORDERED: Rocuronium Bromide 50 MG/5 ML Syringe ONE (08:36)
[2024-03-06] MEDS ORDERED: dexmedeTOMIDine HCl 200 MCG/2 ML SDV ONE (08:36)
[2024-03-06] MEDS ORDERED: ceFAZolin 2 GM in Sodium Chloride 0.9% 50 ML IV ONE (14:11)
== END 2024-03-06 10:40 | disposition home or self-care (01) ==
LOC: MW.SDS 06:24
PROVIDERS: ATTEND Surgery
DX: K42.0 Umbilical hernia with obstruction, without gangrene (principal); K21.9 Gastro-esophageal reflux disease without esophagitis; I10 Essential (primary) hypertension; E78.00 Pure hypercholesterolemia, unspecified; E66.9 Obesity, unspecified; F17.210 Nicotine dependence, cigarettes, uncomplicated; Z79.899 Other long term (current) drug therapy
CPT/HCPCS: 49592; 64488; A9270; C1781; J0665; J0690; J1100; J1885; J2270; J2371; J2405; J2704; J2795; J3010; J3490; J7120; 00840

== ENCOUNTER 2024-10-12 08:23 | Inpatient (IN) | payer BC ==
[2024-10-12 08:45] LABS: BASOPHILS ABSOLUTE AUTO 0.06 K/uL (0.00-0.20); BASOPHILS PERCENT AUTO 0.3 % (0.0-1.0); HEMATOCRIT 44.6 % (37.0-47.0); HEMOGLOBIN 15.1 g/dL (12.0-16.0); IMMATURE GRAN ABSOLUTE AUTO 0.18 K/uL (0.00-0.05); IMMATURE GRAN PERCENT AUTO 0.9 % (0.0-0.4); LYMPHOCYTES ABSOLUTE AUTO 0.95 K/uL (1.00-4.80); MEAN CORPUSCULAR HEMOGLOBIN 32.2 pg (28.0-32.0); MEAN CORPUSCULAR HGB CONC 33.9 g/dL (32.0-36.0); MEAN CORPUSCULAR VOLUME 95.1 fL (83.0-99.0); MEAN PLATELET VOLUME 11.8 fL (9.4-12.3); MONOCYTES ABSOLUTE AUTO 1.26 K/uL (0.00-0.80); MONOCYTES PERCENT AUTO 6.6 % (0.0-8.0); NEUTROPHILS ABSOLUTE AUTO 16.62 K/uL (1.80-7.70); NEUTROPHILS PERCENT AUTO 87.2 % (41.0-71.0); PLATELET COUNT,PLT 256 K/uL (150-400); RED BLOOD CELL COUNT 4.69 M/uL (4.10-5.30); WHITE BLOOD CELL COUNT,WBC 19.07 K/uL (3.9-11.3)
[2024-10-12] MEDS: Sodium Chloride 0.9% 1,000 ML IV ONE ×3 (08:58→14:42)
[2024-10-12 09:12] LABS: APPEARANCE,URINE SLT CLOUDY; COLOR,URINE YELLOW; GLUCOSE,URINE >=1000 mg/dL (NEGATIVE); KETONES,URINE >=80 mg/dL (NEGATIVE); LEUKOCYTE ESTERASE,URINE NEGATIVE (NEGATIVE); NITRITE,URINE NEGATIVE (NEGATIVE); OCCULT BLOOD,URINE MODERATE (NEGATIVE); PH,URINE 5.5 (5.0-8.0); PROTEIN,URINE TRACE mg/dL (NEGATIVE); UROBILINOGEN,URINE 0.2 EU/dL (<2.0)
[2024-10-12 09:16] LABS: A/G RATIO 0.6 (0.9-1.6); ALBUMIN 2.8 g/dL (3.4-5.0); BILIRUBIN TOTAL 0.7 mg/dL (0.2-1.0); CALCIUM 11.1 mg/dL (8.5-10.1); CARBON DIOXIDE,CO2 9.3 mmol/L (21.0-32.0); CREATININE 2.2 mg/dL (0.6-1.0); EST CRCL DRUG DOSING (CG) 25.69 mL/min; POTASSIUM,K 4.6 mmol/L (3.5-5.1); PROTEIN TOTAL,TP 7.8 g/dL (6.4-8.2)
[2024-10-12 09:20] LABS: BILIRUBIN,URINE SMALL (NEGATIVE)
[2024-10-12 09:21] LABS: AMORPHOUS SEDIMENT,URINE LIGHT (NEGATIVE); BACTERIA,URINE FEW (NEGATIVE); EPITHELIAL CELLS,URINE FEW (NONE-FEW); RBC,URINE 0-3 (0-2/HPF); WBC,URINE 0-4 (0-5/HPF)
[2024-10-12] MEDS ORDERED: Glucagon,Human Recombinant 1 MG Vial IM PRN (09:30)
[2024-10-12] MEDS ORDERED: 50% Dextrose in Water 50 ML Syringe IVPUSH PRN (09:30)
[2024-10-12] MEDS: Insulin Regular in 0.9 % NACL 100 ML IV SCH (09:38)
[2024-10-12] MEDS: Insulin Regular, Human 100 Units/ML 10 ML Vial IV ONE (09:38)
[2024-10-12] MEDS: Sodium Chloride 0.9% 10 ML Syringe FLUSH PRN (09:45)
[2024-10-12] MEDS: Sodium Chloride 0.9% 2.5 ML Syringe FLUSH PRN (09:45)
[2024-10-12 11:25] LABS: TRIGLYCERIDES 1270 mg/dL (0-200)
[2024-10-12 11:48] LABS: GLUCOSE RANDOM 872 mg/dL (74-106)
[2024-10-12 11:57] LABS: LACTIC ACID 0.4 mmol/L (0.4-2.0)
[2024-10-12 12:17] LABS: BASE EXCESS VENOUS -17.9 (-2.0-3.0); PH,VENOUS 7.21 (7.31-7.41)
[2024-10-12] MEDS ORDERED: Ondansetron 4 MG/2 ML SDV IVPUSH PRN (12:19)
[2024-10-12] MEDS ORDERED: Acetaminophen 325 MG Tab PO PRN (12:19)
[2024-10-12] MEDS: Sodium Chloride 0.9% 1,000 ML IV SCH (12:36)
[2024-10-12 12:49] LABS: HEMOGLOBIN A1C 12.9 %
[2024-10-12 13:13] LABS: CALCIUM 10.4 mg/dL (8.5-10.1); CARBON DIOXIDE,CO2 7.9 mmol/L (21.0-32.0); CREATININE 1.9 mg/dL (0.6-1.0); EST CRCL DRUG DOSING (CG) 29.75 mL/min; POTASSIUM,K 3.6 mmol/L (3.5-5.1)
[2024-10-12] MEDS: Pantoprazole 80 MG in Sodium Chloride 0.9% 10 ML IVPUSH ONE (14:41)
[2024-10-12] MEDS: cefTRIAXone 1 GM in Sodium Chloride 0.9% 50 ML IV SCH (14:42)
[2024-10-12] MEDS: Pantoprazole 40 MG Vial ONE (14:42)
[2024-10-12] MEDS: Enoxaparin 40 MG/0.4 ML Syringe SUBCUT SCH (16:39)
[2024-10-12 16:54] LABS: BASE EXCESS VENOUS -7.6 (-2.0-3.0); PH,VENOUS 7.3 (7.31-7.41)
[2024-10-12 18:04] LABS: CALCIUM 10.5 mg/dL (8.5-10.1); CREATININE 1.6 mg/dL (0.6-1.0); EST CRCL DRUG DOSING (CG) 35.33 mL/min; POTASSIUM,K 3.2 mmol/L (3.5-5.1)
[2024-10-12] MEDS: Potassium Chloride 10 MEQ in Premix Bag 1 BAG IV SCH (18:45)
[2024-10-12] MEDS: Potassium Chloride 20 MEQ Tab.ER PO ONE (19:51)
[2024-10-12 20:22] LABS: BASE EXCESS VENOUS -8.6 (-2.0-3.0); PH,VENOUS 7.26 (7.31-7.41)
[2024-10-12 20:58] LABS: CARBON DIOXIDE,CO2 18.4 mmol/L (21.0-32.0); CREATININE 1.5 mg/dL (0.6-1.0); EST CRCL DRUG DOSING (CG) 37.68 mL/min; POTASSIUM,K 3.8 mmol/L (3.5-5.1)
[2024-10-12] MEDS: D5 1/2 NS w/ 20 mEq/L KCl 1,000 ML IV SCH (22:27)
[2024-10-13 00:37] LABS: BASE EXCESS VENOUS -6.3 (-2.0-3.0); PH,VENOUS 7.32 (7.31-7.41)
[2024-10-13 01:18] LABS: CALCIUM 9.4 mg/dL (8.5-10.1); CARBON DIOXIDE,CO2 20.6 mmol/L (21.0-32.0); CREATININE 1.2 mg/dL (0.6-1.0); EST CRCL DRUG DOSING (CG) 47.1 mL/min; POTASSIUM,K 3.6 mmol/L (3.5-5.1)
[2024-10-13 04:51] LABS: BASOPHILS ABSOLUTE AUTO 0.03 K/uL (0.00-0.20); BASOPHILS PERCENT AUTO 0.3 % (0.0-1.0); EOSINOPHILS ABSOLUTE AUTO 0.02 K/uL (0.00-0.45); EOSINOPHILS PERCENT AUTO 0.2 % (0.0-6.0); HEMATOCRIT 34.2 % (37.0-47.0); HEMOGLOBIN 11.6 g/dL (12.0-16.0); IMMATURE GRAN ABSOLUTE AUTO 0.05 K/uL (0.00-0.05); IMMATURE GRAN PERCENT AUTO 0.4 % (0.0-0.4); LYMPHOCYTES ABSOLUTE AUTO 1.03 K/uL (1.00-4.80); LYMPHOCYTES PERCENT AUTO 8.6 % (24.0-44.0); MEAN CORPUSCULAR HEMOGLOBIN 31.7 pg (28.0-32.0); MEAN CORPUSCULAR HGB CONC 33.9 g/dL (32.0-36.0); MEAN CORPUSCULAR VOLUME 93.4 fL (83.0-99.0); MEAN PLATELET VOLUME 11.1 fL (9.4-12.3); MONOCYTES ABSOLUTE AUTO 0.82 K/uL (0.00-0.80); MONOCYTES PERCENT AUTO 6.9 % (0.0-8.0); NEUTROPHILS ABSOLUTE AUTO 9.96 K/uL (1.80-7.70); NEUTROPHILS PERCENT AUTO 83.6 % (41.0-71.0); PLATELET COUNT,PLT 183 K/uL (150-400); RED BLOOD CELL COUNT 3.66 M/uL (4.10-5.30); WHITE BLOOD CELL COUNT,WBC 11.91 K/uL (3.9-11.3)
[2024-10-13 04:52] LABS: BASE EXCESS VENOUS -4.4 (-2.0-3.0); BICARBONATE,VENOUS 21 mEQ/mL (22-28); PCO2 VENOUS 40 mmHG (41-51); PH,VENOUS 7.33 (7.31-7.41)
[2024-10-13 04:53] LABS: PO2 VENOUS < 30 mmHG (35-45)
[2024-10-13 05:14] LABS: CALCIUM 9.3 mg/dL (8.5-10.1); CARBON DIOXIDE,CO2 21.8 mmol/L (21.0-32.0); CREATININE 1.1 mg/dL (0.6-1.0); EST CRCL DRUG DOSING (CG) 51.39 mL/min; PHOSPHORUS 1.2 mg/dL (2.6-4.7); POTASSIUM,K 3.5 mmol/L (3.5-5.1)
[2024-10-13] MEDS: Potassium Phosphates 15 MMOLE in Sodium Chloride 0.9% 250 ML IV SCH (08:03)
[2024-10-13 08:42] LABS: PH,VENOUS 7.36 (7.31-7.41)
[2024-10-13] MEDS: Pantoprazole 40 MG in Sodium Chloride 0.9% 10 ML IVPUSH SCH (08:50)
[2024-10-13 09:00] LABS: CALCIUM 9.5 mg/dL (8.5-10.1); CARBON DIOXIDE,CO2 23.3 mmol/L (21.0-32.0); CREATININE 1.1 mg/dL (0.6-1.0); EST CRCL DRUG DOSING (CG) 51.39 mL/min; POTASSIUM,K 3.6 mmol/L (3.5-5.1)
[2024-10-13 13:12] LABS: CALCIUM 9.6 mg/dL (8.5-10.1); CARBON DIOXIDE,CO2 24.2 mmol/L (21.0-32.0); CREATININE 0.9 mg/dL (0.6-1.0); EST CRCL DRUG DOSING (CG) 62.8 mL/min; POTASSIUM,K 3.6 mmol/L (3.5-5.1)
[2024-10-13 16:56] LABS: CALCIUM 9.4 mg/dL (8.5-10.1); CARBON DIOXIDE,CO2 23.8 mmol/L (21.0-32.0); CREATININE 0.9 mg/dL (0.6-1.0); EST CRCL DRUG DOSING (CG) 62.8 mL/min; POTASSIUM,K 3.9 mmol/L (3.5-5.1)
[2024-10-13] MEDS ORDERED: 50% Dextrose in Water 50 ML Syringe IVPUSH PRN (17:54)
[2024-10-13] MEDS ORDERED: Glucagon,Human Recombinant 1 MG Vial IM PRN (17:54)
[2024-10-13] MEDS: Insulin Glargine,Hum.Rec.Anlog 100 UNIT/ML 3 ML Pen SUBCUT SCH (18:31)
[2024-10-13] MEDS: Insulin Glargine,Hum.Rec.Anlog 100 UNIT/ML 3 ML Pen SUBCUT STA (19:09)
[2024-10-13] MEDS: Insulin Aspart 100 Units/ML 3 ML Pen SUBCUT SCH (21:00)
[2024-10-13 21:16] LABS: CALCIUM 9.2 mg/dL (8.5-10.1); EST CRCL DRUG DOSING (CG) 56.53 mL/min; POTASSIUM,K 3.2 mmol/L (3.5-5.1)
[2024-10-14 00:48] LABS: CALCIUM 9.3 mg/dL (8.5-10.1); CARBON DIOXIDE,CO2 23.2 mmol/L (21.0-32.0); CREATININE 0.8 mg/dL (0.6-1.0); EST CRCL DRUG DOSING (CG) 70.66 mL/min; POTASSIUM,K 3.4 mmol/L (3.5-5.1)
[2024-10-14 04:40] LABS: BASOPHILS ABSOLUTE AUTO 0.05 K/uL (0.00-0.20); BASOPHILS PERCENT AUTO 0.6 % (0.0-1.0); EOSINOPHILS ABSOLUTE AUTO 0.06 K/uL (0.00-0.45); EOSINOPHILS PERCENT AUTO 0.7 % (0.0-6.0); HEMATOCRIT 35.1 % (37.0-47.0); HEMOGLOBIN 11.8 g/dL (12.0-16.0); IMMATURE GRAN ABSOLUTE AUTO 0.05 K/uL (0.00-0.05); IMMATURE GRAN PERCENT AUTO 0.6 % (0.0-0.4); LYMPHOCYTES ABSOLUTE AUTO 1.33 K/uL (1.00-4.80); LYMPHOCYTES PERCENT AUTO 15.9 % (24.0-44.0); MEAN CORPUSCULAR HEMOGLOBIN 31.6 pg (28.0-32.0); MEAN CORPUSCULAR HGB CONC 33.6 g/dL (32.0-36.0); MEAN CORPUSCULAR VOLUME 94.1 fL (83.0-99.0); MEAN PLATELET VOLUME 11.4 fL (9.4-12.3); MONOCYTES ABSOLUTE AUTO 0.72 K/uL (0.00-0.80); MONOCYTES PERCENT AUTO 8.6 % (0.0-8.0); NEUTROPHILS ABSOLUTE AUTO 6.13 K/uL (1.80-7.70); NEUTROPHILS PERCENT AUTO 73.6 % (41.0-71.0); PLATELET COUNT,PLT 164 K/uL (150-400); RED BLOOD CELL COUNT 3.73 M/uL (4.10-5.30); WHITE BLOOD CELL COUNT,WBC 8.34 K/uL (3.9-11.3)
[2024-10-14 05:01] LABS: CALCIUM 9.3 mg/dL (8.5-10.1); CARBON DIOXIDE,CO2 22.9 mmol/L (21.0-32.0); CREATININE 0.8 mg/dL (0.6-1.0); EST CRCL DRUG DOSING (CG) 70.66 mL/min; POTASSIUM,K 3.9 mmol/L (3.5-5.1)
[2024-10-14 09:08] LABS: CALCIUM 9.4 mg/dL (8.5-10.1); CARBON DIOXIDE,CO2 23.6 mmol/L (21.0-32.0); CREATININE 0.9 mg/dL (0.6-1.0); EST CRCL DRUG DOSING (CG) 62.8 mL/min; POTASSIUM,K 4.2 mmol/L (3.5-5.1)
[2024-10-14] MEDS: Phosphorus #1 250 MG Tab PO ONE (10:01)
[2024-10-14] MEDS: Insulin Glargine,Hum.Rec.Anlog 100 UNIT/ML 3 ML Pen SUBCUT STA (11:22)
[2024-10-14 12:58] LABS: CALCIUM 9.4 mg/dL (8.5-10.1); CARBON DIOXIDE,CO2 24.1 mmol/L (21.0-32.0); CREATININE 0.9 mg/dL (0.6-1.0); EST CRCL DRUG DOSING (CG) 62.8 mL/min; POTASSIUM,K 3.9 mmol/L (3.5-5.1)
[2024-10-14 17:03] LABS: CALCIUM 9.6 mg/dL (8.5-10.1); CARBON DIOXIDE,CO2 25.1 mmol/L (21.0-32.0); EST CRCL DRUG DOSING (CG) 56.53 mL/min; POTASSIUM,K 3.8 mmol/L (3.5-5.1)
[2024-10-14] MEDS: Insulin Aspart 100 Units/ML 3 ML Pen SUBCUT ONE (17:44)
[2024-10-14] MEDS: atorvaSTATin 10 MG Tab PO SCH (20:42)
[2024-10-14 20:59] LABS: CALCIUM 9.3 mg/dL (8.5-10.1); CARBON DIOXIDE,CO2 27.7 mmol/L (21.0-32.0); CREATININE 0.9 mg/dL (0.6-1.0); EST CRCL DRUG DOSING (CG) 62.8 mL/min; POTASSIUM,K 3.3 mmol/L (3.5-5.1)
[2024-10-15] MEDS: Potassium Chloride 10 MEQ in Premix Bag 1 BAG IV SCH (00:28)
[2024-10-15] MEDS: Potassium Chloride 20 MEQ in Premix Bag 1 BAG IV ONE (00:33)
[2024-10-15 06:14] LABS: BASOPHILS ABSOLUTE AUTO 0.04 K/uL (0.00-0.20); BASOPHILS PERCENT AUTO 0.6 % (0.0-1.0); EOSINOPHILS ABSOLUTE AUTO 0.05 K/uL (0.00-0.45); EOSINOPHILS PERCENT AUTO 0.7 % (0.0-6.0); HEMATOCRIT 35.4 % (37.0-47.0); HEMOGLOBIN 11.8 g/dL (12.0-16.0); IMMATURE GRAN ABSOLUTE AUTO 0.06 K/uL (0.00-0.05); IMMATURE GRAN PERCENT AUTO 0.9 % (0.0-0.4); LYMPHOCYTES ABSOLUTE AUTO 1.32 K/uL (1.00-4.80); LYMPHOCYTES PERCENT AUTO 18.7 % (24.0-44.0); MEAN CORPUSCULAR HEMOGLOBIN 31.4 pg (28.0-32.0); MEAN CORPUSCULAR HGB CONC 33.3 g/dL (32.0-36.0); MEAN CORPUSCULAR VOLUME 94.1 fL (83.0-99.0); MEAN PLATELET VOLUME 11.2 fL (9.4-12.3); MONOCYTES ABSOLUTE AUTO 0.57 K/uL (0.00-0.80); MONOCYTES PERCENT AUTO 8.1 % (0.0-8.0); NEUTROPHILS ABSOLUTE AUTO 5.01 K/uL (1.80-7.70); PLATELET COUNT,PLT 163 K/uL (150-400); RED BLOOD CELL COUNT 3.76 M/uL (4.10-5.30); WHITE BLOOD CELL COUNT,WBC 7.05 K/uL (3.9-11.3)
[2024-10-15] MEDS: Pantoprazole 40 MG Tab.CR PO SCH (08:07)
[2024-10-15] MEDS: Fenofibrate,Micronized 67 MG Cap PO SCH (08:07)
[2024-10-15] MEDS: Insulin Glargine,Hum.Rec.Anlog 100 UNIT/ML 3 ML Pen SUBCUT SCH (08:31)
[2024-10-15] MEDS: Potassium Chloride 20 MEQ Tab.ER PO ONE (08:44)
[2024-10-15] MEDS: Insulin Aspart 100 Units/ML 3 ML Pen SUBCUT ONE (14:49)
== END 2024-10-15 16:45 | disposition home or self-care (01) | DRG 420 ==
LOC: MW.ED 08:23 → MW.ICU 10:36 → UNDOADMIN 10:36 → MW.MS 10-15 09:12
PROVIDERS: ADMIT Internal Medicine; ATTEND Internal Medicine
DX: E11.10 Type 2 diabetes mellitus with ketoacidosis without coma (principal); K85.90 Acute pancreatitis without necrosis or infection, unspecified; N17.9 Acute kidney failure, unspecified; N39.0 Urinary tract infection, site not specified; I10 Essential (primary) hypertension; E66.9 Obesity, unspecified; K21.9 Gastro-esophageal reflux disease without esophagitis; F17.210 Nicotine dependence, cigarettes, uncomplicated; E86.0 Dehydration; E78.1 Pure hyperglyceridemia; K29.80 Duodenitis without bleeding; Z68.38 Body mass index [BMI] 38.0-38.9, adult; Z87.19 Personal history of other diseases of the digestive system; Z90.89 Acquired absence of other organs; Z90.722 Acquired absence of ovaries, bilateral
CPT/HCPCS: 36415; 74176; 74176-26; 80048; 80053; 81001; 82550; 82803; 82947; 83036; 83605; 83690; 83735; 84100; 84132; 84478; 85025; 87040; 96360; 96361; 99285; 99285-25; A9270-GY; J0696; J1815; J1815-GY; J2470; J3480; J3490; J7030; J7050